=== PATIENT | male | born 1950 | race Caucasian/White ===

== ENCOUNTER 2018-02-17 11:44 | Emergency (ER) | payer MEDICARE ==
[~2018-02-17] VITALS: Ht 175.3 cm; Wt 4.5 kg
[2018-02-17] MEDS ORDERED: LISINOPRIL10 MG PO (12:09)
== END 2018-02-17 12:15 | disposition home or self-care (01) ==
LOC: ED 11:44
DX: H93.92 Unspecified disorder of left ear (principal)